=== PATIENT | female | born 1970 | race Caucasian/White ===

== ENCOUNTER 2016-11-22 16:36 | Emergency (ER) | payer OTHER ==
[~2016-11-22] VITALS: Ht 157.5 cm; Wt 74.5 kg
[2016-11-22 16:46] VITALS: Ht 157.5 cm; Wt 74.5 kg
[2016-11-22] MEDS ORDERED: KETOROLAC 30 MG INJ IM STA (17:11)
[2016-11-22] MEDS ORDERED: KETOROLAC 30 MG INJ IV STA (17:22)
[2016-11-22 17:50] LABS: BASOPHILS % 0.2 % (0.0-2.0); EOSINOPHILS % 0.1 % (0.0-7.0); HEMATOCRIT 43.1 % (37.0-47.0); HEMOGLOBIN 14.6 g/dl (12.0-16.0); LYMPHOCYTES # 1.7 10^3/ul (0.8-2.9); LYMPHOCYTES % 8.9 % (15.0-51.0); MEAN CORPUSCULAR HGB CONC 33.9 g/dl (32.0-37.0); MEAN CORPUSCULAR VOLUME 88.7 fl (82.0-101.0); MEAN PLATELET VOLUME 9.8 fl (7.4-10.4); MONOCYTES % 5.4 % (0.0-11.0); NEUTROPHIL # 16.2 10^3/ul (1.6-7.5); NEUTROPHILS % 84.8 % (39.0-77.0); PLATELET COUNT 315 10^3/UL (140-415); RED BLOOD COUNT 4.86 10^6/ul (4.20-5.40); RED CELL DISTRIBUTION WIDTH 13.1 % (11.5-14.5); WHITE BLOOD COUNT 19.1 10^3/ul (4.8-10.8)
[2016-11-22 18:09] LABS: CALCIUM 9.5 mg/dl (8.4-10.2); CREATININE 0.66 mg/dl (0.44-1.00); POTASSIUM 3.5 mmol/L (3.5-5.1)
--- NOTE | 2016-11-22 18:34 | RADRPT ---
PROCEDURE: Ultrasound breast left CLINICAL INDICATION: Left breast swelling and pain TECHNIQUE: Left breast swelling and pain. COMPARISON: None. FINDINGS: There are multiple simple appearing cysts within the left breast measuring up to 1.0 cm at 9 o'clock . No mass is identified. There are dilated breast ducts. The left axilla is unremarkable. IMPRESSION: 1. Multiple simple appearing cysts within the left breast measuring up to 1.0 cm, suggestive of fib rocystic changes. 2. Dilated breast ducts, nonspecific. Correlation with diagnostic mammography is recommended. BI-RADS 0: Incomplete RPTAT: HTAR .Jose Liu MD, Date Time Electronically viewed and signed by .Jose Liu MD, on 11/22/2016 18:33 .R/
[2016-11-22] MEDS ORDERED: CEFTRIAXONE 1 GM INJ IVPB ONE (19:00)
[2016-11-22] MEDS ORDERED: CEFTRIAXONE 1 GM/50 ML (PMX) 50 ML IVPB ONE (19:30)
[2016-11-22] MEDS ORDERED: CEPH-443 PO (19:57)
[2016-11-22] MEDS ORDERED: IBUP-1542 PO (19:57)
--- NOTE | 2016-11-22 19:57 | ERD ---
ER Documentation Chief Complaint Date/Time DATE: 11/22/16 TIME: 19:53 Chief Complaint Sent from MD for eval breast pain HPI Patient is a 45-year-old female who presents to the emergency department for concerns of left breast pain. Patient states her pain started 2 days ago. Patient reports hard large lump-like sensation in her breast. Patient also reports warmth and swelling. Patient has no redness to the affected breast. Patient denies any trauma. Patient denies any fevers, chills, nausea, vomiting , chest pain, shortness breath, left upper extremity pain or loss consciousness. Patient was seen by her primary care physician today and given a prescription for Dicloxacillin however she is not started this prescription yet. Patient states her last mammogram was 3 months ago, normal per patient. ROS All systems reviewed and are negative except as per history of present illness. Medications Home Meds Active Scripts Ibuprofen* (Motrin*) 600 Mg Tab, 600 MG PO Q6, #30 TAB Prov:TATIANA ODELL PA-C 11/22/16 Cephalexin* (Keflex*) 500 Mg Capsule, 500 MG PO TID for 10 Days, CAP Prov:TATIANA ODELL PA-C 11/22/16 Allergies Allergies: Coded Allergies: No Known Allergy (Unverified , 11/22/16) PMhx/Soc Medical and Surgical Hx: pt denies Medical Hx, pt denies Surgical Hx Hx Alcohol Use: No Hx Substance Use: No Hx Tobacco Use: No Smoking Status: Never smoker Physical Exam Vitals Vital Signs Date Time Temp Pulse Resp B/P Pulse Ox O2 Delivery O2 Flow Rate FiO2 11/22/16 20:12 98.8 81 20 141/76 99 Room Air 11/22/16 16:46 100.0 72 20 178/98 98 Physical Exam GENERAL: Well-developed, well-nourished female. Appears in no acute distress. HEAD: Normocephalic, atraumatic. EYES: Pupils are equally reactive bilaterally. EOMs grossly intact. No conjunctival erythema. ENT: Moist mucous membranes. No uvula deviation. No kissing tonsils. NECK: Supple. No meningismus. Normal range of motion of the neck. LUNG: Clear to auscultation bilaterally. No rhonchi, wheezing, rales or coarse breath sounds. L BREAST: Palpable, hard mass noted in the 9 through 12 o'clock region. Tender to palpation. No erythema. Warmth and swelling noted. No nipple discharge. No streaking. No induration or fluctuance noted. HEART: Regular rate and rhythm. No murmurs, rubs or gallops. EXTREMITIES: Equal pulses bilaterally. No peripheral clubbing, cyanosis or edema. No unilateral leg swelling. NEUROLOGIC: Alert and oriented. Moving all four extremities without any difficulty. Normal speech. Steady gait. SKIN: Normal color. Warm and dry. No rashes or lesions. Result Diagram: 11/22/16 1725 11/22/16 1725 Results 24 hrs Laboratory Tests Test 11/22/16 17:25 White Blood Count 19.110^3/ul Red Blood Count 4.8610^6/ul Hemoglobin 14.6g/dl Hematocrit 43.1% Mean Corpuscular Volume 88.7fl Mean Corpuscular Hemoglobin 30.0pg Mean Corpuscular Hemoglobin Concent 33.9g/dl Red Cell Distribution Width 13.1% Platelet Count 14626^3/UL Mean Platelet Volume 9.8fl Neutrophils % 84.8% Lymphocytes % 8.9% Monocytes % 5.4% Eosinophils % 0.1% Basophils % 0.2% Nucleated Red Blood Cells % 0.0/100WBC Neutrophils # 16.210^3/ul Lymphocytes # 1.710^3/ul Monocytes # 1.010^3/ul Eosinophils # 0.010^3/ul Basophils # 0.010^3/ul Nucleated Red Blood Cells # 0.010^3/ul Sodium Level 140mmol/L Potassium Level 3.5mmol/L Chloride Level 98mmol/L Carbon Dioxide Level 24mmol/L Anion Gap 22 Blood Urea Nitrogen 14mg/dl Creatinine 0.66mg/dl Glucose Level 127mg/dl Calcium Level 9.5mg/dl Current Medications Medications (Trade) Dose Ordered Sig/Murphy Route PRN Reason Start Time Stop Time Status Last Admin Dose Admin Ketorolac Tromethamine (Toradol) 30 mg ONCE STAT IM 11/22/16 17:11 11/22/16 17:24 DC Ketorolac Tromethamine (Toradol) 30 mg ONCE STAT IV 11/22/16 17:22 11/22/16 17:24 DC 11/22/16 17:28 Ceftriaxone Sodium 1 gm 1 gm ONCE ONCE IVPB 11/22/16 19:00 11/22/16 19:15 DC Ceftriaxone Sodium (Rocephin) 50 ml @ 100 mls/hr ONCE ONCE IVPB 11/22/16 19:30 11/22/16 19:59 DC 11/22/16 19:25 Procedures/MDM ED COURSE: The patient was stable throughout ED course. I kept the patient and/or family informed of laboratory and diagnostic imaging results throughout the ED course. DIAGNOSTIC IMAGING: Read by radiologist. DIAGNOSTIC IMAGING REPORT Patient: ROBERTO CARLOS GONZALEZ : 1970 Age: 45 Sex: F MR #: [id number] DOS: 11/22/16 1711 Ordering MD: TATIANA ODELL PA-C Location: [facility] Room/Bed: PROCEDURE: Ultrasound breast left CLINICAL INDICATION: Left breast swelling and pain TECHNIQUE: Left breast swelling and pain. COMPARISON: None. FINDINGS: There are multiple simple appearing cysts within the left breast measuring up to 1.0 cm at 9 o'clock. No mass is identified. There are dilated breast ducts. The left axilla is unremarkable. IMPRESSION: 1. Multiple simple appearing cysts within the left breast measuring up to 1.0 cm, suggestive of fibrocystic changes. 2. Dilated breast ducts, nonspecific. Correlation with diagnostic mammography is recommended. BI-RADS 0: Incomplete RPTAT: HTAR .Jose Liu MD, MD Date Time Electronically viewed and signed by .Jose Liu MD, on 11/22/2016 18:33 .R/ CC: TATIANA ODELL PA-C MEDICATIONS GIVEN: IV Rocephin Patient tolerated medication well with no adverse reactions. Patient reported improvement in pain. MEDICAL DECISION MAKING: Patient is a 45-year-old female presents emergency department for concerns of left breast mass which started 2 days ago. Patient reports swelling and warmth to the affected area. Patient denies any redness. Vital signs were reviewed. Patient is noted to have a low-grade temperature upon arrival. Patient was given Toradol here in the emergency department which did down trend her temperature.. Patient was not hypoxic. Patient was hemodynamically stable. Blood work was obtained. WBC count of 19.1 was noted. No signs of severe anemia/ CMP showed no evidence of electrolyte abnormalities, severe acidosis, alkalosis, renal failure, or liver disease. Breast ultrasound of the left breast obtained. Ultrasound showed 1. Multiple simple appearing cysts within the left breast measuring up to 1.0 cm, suggestive of fibrocystic changes. 2. Dilated breast ducts, nonspecific. Correlation with diagnostic mammography is recommended. Patient was advised to follow-up with her primary care physician for repeat mammogram. At this time, patient's presentation is most consistent with fibrocystic changes. Unable to rule out inflammatory breast cancer at this time. I discussed the patient's case with my supervising physician Dr. Muñoz who agreed the patient was stable for outpatient management. Patient should start p.o. antibiotics today. Patient was advised to return to emergency department 2 days for recheck. Low suspicion for abscess , mastoiditis, deep space infection. Low suspicion for sepsis at this time. PRESCRIPTION: Keflex, Ibuprofen DISCHARGE: At this time, patient is stable for discharge and outpatient management. Patient was given a copy of all blood work and imaging studies obtained today. Patient was advised to start p.o. antibiotics as soon as possible. I have instructed the patient to follow-up with his/her primary care physician in 1-2 days. I have discussed with the patient the possibility of needing to see a specialist for further workup and imaging studies if symptoms persist. I have instructed the patient to promptly return to the ER for any new or worsening symptoms including increased pain, fever, nausea, vomiting, weakness or LOC. The patient and/or family expressed understanding of and agreement with this plan. All questions were answered. Home care instructions were provided. Patients blood pressure was elevated (>120/80) but appears stable without evidence of hypertensive emergency, hypertensive urgency or end-organ failure. I had discussion with the patient about the risks of hypertension. I have advised the patient to follow up with his/her primary care physician for outpatient monitoring and treatment for hypertension in 2-3 days. I have instructed the patient to return to the ER for any new or worsening symptoms including chest pain, shortness of breath, headache, blurred vision, confusion, nausea, vomiting or LOC. Disclaimer: Inadvertent spelling and grammatical errors are likely due to EHR/ dictation software use and do not reflect on the overall quality of patient care. Also, please note that the electronic time recorded on this note does not necessarily reflect the actual time of the patient encounter. Departure Diagnosis: Primary Impression: Fibrocystic changes of left breast Condition: Stable [facility] Additional Instructions: Return to the emergency department in 2 days for wound recheck. Return sooner for any worsening symptoms including but not limited to fevers, chills, worsening redness, swelling or warmth. Apply warm compresses to the affected region. Call your primary care doctor TOMORROW for an appointment during the next 1-2 days.See the doctor sooner or return here if your condition worsens before your appointment time. TATIANA ODELL PA-C Nov 22, 2016 19:57
[2016-11-22 20:12] VITALS: BP 141/76; PULSE 81; RESP 20; TEMP 98.8
== END 2016-11-22 20:12 | disposition home or self-care (01) ==
LOC: FTE 16:36
DX: N60.12 Diffuse cystic mastopathy of left breast (principal)
CPT/HCPCS: 76536; 80048; 85025; 96374; 96375; J0696; J1885; Z7502